=== PATIENT | male | born 1985 | race Caucasian/White ===

== ENCOUNTER 2020-11-05 16:37 | Emergency (ER) | payer OTHER ==
[2020-11-05 17:28] LABS: HEMOGLOBIN 15.2 gm/dl (14.0-17.5); RED BLOOD COUNT 4.92 M/UL (4.20-5.50); WHITE BLOOD COUNT 7.5 K/UL (4.5-11.0)
[2020-11-05 17:50] LABS: BUN/CREATININE RATIO 12 (0-10)
[2020-11-05] MEDS ORDERED: PROTONIX20 MG PO (20:17)
== END 2020-11-05 20:26 | disposition home or self-care (01) ==
LOC: ER1 16:37
PROVIDERS: Physician Assistant
DX: K29.70 Gastritis, unspecified, without bleeding (principal)
CPT/HCPCS: 71045; 80053; 82550; 82553; 83874; 84484; 85025; 93005; 99284

== ENCOUNTER → 2020-11-11 | Outpatient (CLI) | payer OTHER ==
[~2020-11-11] MED LIST: PROTONIX20 MG PO
[2020-11-11 10:18] LABS: HEMOGLOBIN 14.2 gm/dl (14.0-17.5); RED BLOOD COUNT 4.88 M/UL (4.20-5.50); WHITE BLOOD COUNT 5.8 K/UL (4.5-11.0)
[2020-11-11 10:50] LABS: BUN/CREATININE RATIO 14 (0-10)
== END ==
LOC: LAB 09:58
PROVIDERS: Nurse Practitioner Family
DX: R10.13 Epigastric pain (principal); R10.11 Right upper quadrant pain; R10.12 Left upper quadrant pain; R19.4 Change in bowel habit; R14.0 Abdominal distension (gaseous)
CPT/HCPCS: 36415; 80053; 82150; 83690; 85025

== ENCOUNTER → 2020-11-11 | Outpatient (CLI) | payer OTHER | LOC: EXRD 08:40 | DX: R10.11 Right upper quadrant pain (principal); R10.13 Epigastric pain; K82.4 Cholesterolosis of gallbladder | CPT/HCPCS: 76705 ==